=== PATIENT | female | born 1985 | race Two or more races ===

== ENCOUNTER 2022-10-15 08:21 | Inpatient (IN) | payer BC, OTHER ==
[~2022-10-15] VITALS: Ht 160 cm; Wt 62.1 kg
[2022-10-15] MEDS ORDERED: LORAZEPAM INJ 2 MG/ML VIAL ONE (08:28)
[2022-10-15] MEDS ORDERED: LORAZEPAM INJ 2 MG/ML VIAL IV ONE (09:00)
[2022-10-15] MEDS ORDERED: IV NS 0.9% 1,000 ML IV ONE (09:00)
[2022-10-15] MEDS ORDERED: IPRATROPIUM NEB FS 0.5 MG/2.5 ML AMPUL.NEB NEB ONE ×2 (13:00→14:00)
[2022-10-15] MEDS ORDERED: Magnesium 1GM/D5W 100ML PREMIX 200 ML IV ONE (13:00)
[2022-10-15] MEDS ORDERED: methylPREDNISolone SOD SUCC 125 MG/2ML VIAL IV ONE (13:00)
[2022-10-15] MEDS ORDERED: ALBUTEROL FS 2.5 MG/3 ML VIAL.NEB NEB ONE ×2 (13:00→14:00)
[2022-10-15] MEDS ORDERED: IV NS 0.9% 1,000 ML BAG IV ONE (13:00)
[2022-10-15] MEDS ORDERED: methylPREDNISolone SOD SUCC 125 MG/2ML VIAL ONE (13:04)
[2022-10-15] MEDS ORDERED: Magnesium 1GM/D5W 100ML PREMIX 100 ML IV ONE ×2 (13:06→14:31)
[2022-10-15] MEDS ORDERED: ALBUTEROL FS 2.5 MG/3 ML VIAL.NEB ONE ×2 (13:08→13:43)
[2022-10-15] MEDS ORDERED: IPRATROPIUM NEB FS 0.5 MG/2.5 ML AMPUL.NEB ONE ×2 (13:08→13:43)
[2022-10-15] MEDS ORDERED: FLUT1DIS3 INH (13:29)
[2022-10-15] MEDS ORDERED: ALBU8.5H8 INH (13:29)
[2022-10-15] MEDS ORDERED: HYDR-4076 PO (13:29)
[2022-10-15 13:33] LABS: ABG BASE EXCESS -5.9 mmol/L; ABG PCO2 32.6 mmHg (35.0-45.0); ABG PO2 87.2 mmHg (75.0-100.0); COHb 0.3 % (0.5-1.5); MetHb 0.3 % (0.0-1.5); O2Hb 95.3 % (94.0-97.0); SITE, ABG Right Radial; VENT MODE, BG RA
[2022-10-15] MEDS ORDERED: KETOROLAC TROMETHAMINE 15 MG/ML VIAL ONE (13:49)
[2022-10-15 13:58] LABS: CALCIUM, SERUM 8.3 mg/dL (8.5-10.1); CARBON DIOXIDE 16 mmol/L (21-32); CHLORIDE 101 mmol/L (98-107); CREATININE 0.9 mg/dL (0.6-1.3); GLUCOSE 222 mg/dL (74-106); SODIUM SERUM 137 mmol/L (136-145); UREA NITROGEN, BLOOD 15 mg/dL (7-18)
[2022-10-15] MEDS ORDERED: KETOROLAC TROMETHAMINE INJ 30 MG/ML VIAL IV ONE (14:00)
[2022-10-15 14:16] LABS: POTASSIUM 2.1 mmol/L (3.5-5.1)
[2022-10-15 14:17] LABS: BASOPHILS % (AUTO) 0.4 % (0.0-2.0); EOSINOPHILS % (AUTO) 4.7 % (0.0-6.0); HEMATOCRIT 39 % (33-45); HEMOGLOBIN 12.7 g/dL (11.5-14.8); LYMPHOCYTES # (AUTO) 4.2 K/uL (0.8-4.8); MEAN CORPUSCULAR HGB CONC 32 g/dl (31.0-36.0); MEAN CORPUSCULAR VOLUME 89 fL (82-100); MONOCYTES # (AUTO) 0.5 K/uL (0.1-1.30); MONOCYTES % (AUTO) 5.2 % (2.0-12.0); NEUTROPHILS # (AUTO) 4.2 K/uL (1.8-8.9); NEUTROPHILS % (AUTO) 44.7 % (43.0-81.0); PLATELET COUNT (AUTO) 285 K/uL (150-450); RED BLOOD CELL COUNT(AUTO) 4.42 MIL/uL (4.0-5.2); WHITE BLOOD COUNT (AUTO) 9.3 K/uL (4.3-11.0)
[2022-10-15] MEDS ORDERED: POTASSIUM CHLORIDE 20 MEQ TAB.PRT.SR PO ONE ×3 (14:30→15:30)
[2022-10-15] MEDS ORDERED: POTASSIUM CL. PREMIX PERIPHER. 200 ML ONE (14:31)
[2022-10-15] MEDS: POTASSIUM CL. PREMIX PERIPHER. 50 ML IV SCH ×4 (14:47→17:54)
[2022-10-15] MEDS ORDERED: NALTREXONE PO (14:58)
[2022-10-15] MEDS ORDERED: INSULIN REGULAR, HUMAN 100 UNIT/ML 3 ML VIAL SQ PRN (16:30)
[2022-10-15] MEDS ORDERED: DEXTROSE 50%-WATER 50 ML DISP.SYRIN IV PRN (16:30)
[2022-10-15] MEDS ORDERED: ALBUTEROL FS 2.5 MG/0.5 ML VIAL.NEB NEB PRN (16:30)
[2022-10-15] MEDS ORDERED: ONDANSETRON HCL/PF 4 MG/2 ML VIAL IVP PRN (16:30)
[2022-10-15] MEDS ORDERED: ACETAMINOPHEN 325 MG TABLET PO PRN (16:30)
[2022-10-15 17:21] LABS: ALBUMIN 3.7 g/dL (3.4-5.0); BILIRUBIN,TOTAL 0.2 mg/dL (0.2-1.0); CALCIUM, SERUM 7.1 mg/dL (8.5-10.1); CREATININE 0.8 mg/dL (0.6-1.3); POTASSIUM 3.7 mmol/L (3.5-5.1)
[2022-10-15] MEDS: BLOOD SUGAR DIAGNOSTIC 1 EACH STRIP IN SCH ×2 (17:30→22:24)
[2022-10-15] MEDS: ENOXAPARIN SODIUM 40 MG/0.4 ML DISP.SYRIN SQ SCH (18:18)
[2022-10-15] MEDS: IV D5/0.45 NACL 1,000 ML IV SCH (19:02)
[2022-10-15] MEDS: AMOX/CLAVULANATE 875 MG TABLET PO SCH (19:03)
[2022-10-15 20:00] VITALS: BP 103/65
[2022-10-15 20:01] LABS: BILIRUBIN,DIRECT 0.1 mg/dL (0.0-0.2)
[2022-10-15] MEDS: IPRATROPIUM NEB FS 0.5 MG/2.5 ML AMPUL.NEB NEB SCH (20:28)
[2022-10-15] MEDS: ALBUTEROL FS 2.5 MG/3 ML VIAL.NEB NEB SCH (20:28)
[2022-10-15] MEDS ORDERED: ALPRAZOLAM 0.25 MG TABLET PO PRN (21:00)
[2022-10-16] VITALS: BP 105/63
[2022-10-16] MEDS: BUTALB/APAP/CAFFEINE 1 EACH TABLET PO PRN ×2 (00:08→11:53)
[2022-10-16] MEDS: ALBUTEROL FS 2.5 MG/3 ML VIAL.NEB NEB SCH ×4 (01:27→20:07)
[2022-10-16] MEDS: IPRATROPIUM NEB FS 0.5 MG/2.5 ML AMPUL.NEB NEB SCH ×2 (01:28→07:24)
[2022-10-16] MEDS: MORPHINE SULFATE INJ 2 MG/ML DISP.SYRIN IV PRN ×2 (02:09→20:41)
[2022-10-16 04:00] VITALS: BP 118/65
[2022-10-16] MEDS: IV D5/0.45 NACL 1,000 ML IV SCH (04:31)
[2022-10-16 06:30] LABS: BASOPHILS % (AUTO) 0.1 % (0.0-2.0); HEMATOCRIT 33 % (33-45); LYMPHOCYTES # (AUTO) 1.6 K/uL (0.8-4.8); LYMPHOCYTES % (AUTO) 12.6 % (20.0-44.0); MEAN CORPUSCULAR HGB CONC 33 g/dl (31.0-36.0); MEAN CORPUSCULAR VOLUME 88 fL (82-100); MONOCYTES # (AUTO) 1.1 K/uL (0.1-1.30); MONOCYTES % (AUTO) 8.7 % (2.0-12.0); NEUTROPHILS # (AUTO) 9.7 K/uL (1.8-8.9); NEUTROPHILS % (AUTO) 78.6 % (43.0-81.0); PLATELET COUNT (AUTO) 209 K/uL (150-450); RED BLOOD CELL COUNT(AUTO) 3.72 MIL/uL (4.0-5.2); WHITE BLOOD COUNT (AUTO) 12.3 K/uL (4.3-11.0)
[2022-10-16] MEDS: BLOOD SUGAR DIAGNOSTIC 1 EACH STRIP IN SCH ×4 (06:54→21:39)
[2022-10-16 07:20] LABS: ALBUMIN 3.3 g/dL (3.4-5.0); BILIRUBIN,TOTAL 0.2 mg/dL (0.2-1.0); CREATININE 0.6 mg/dL (0.6-1.3); MAGNESIUM 2.9 mg/dL (1.8-2.4); PHOSPHORUS 3.5 mg/dL (2.5-4.9); TOTAL PROTEIN, SERUM 6.5 g/dL (6.4-8.2)
[2022-10-16] MEDS: AMOX/CLAVULANATE 875 MG TABLET PO SCH (08:13)
[2022-10-16 08:33] VITALS: BP 115/70
[2022-10-16 11:49] VITALS: BP 112/69
[2022-10-16] MEDS: predniSONE 20 MG TABLET PO SCH (11:49)
[2022-10-16 16:12] VITALS: BP 136/56
[2022-10-16] MEDS: ENOXAPARIN SODIUM 40 MG/0.4 ML DISP.SYRIN SQ SCH (16:54)
[2022-10-16 20:00] VITALS: BP 109/76
[2022-10-17] VITALS: BP 102/53
[2022-10-17] MEDS: ALBUTEROL FS 2.5 MG/3 ML VIAL.NEB NEB SCH ×2 (02:03→07:56)
[2022-10-17 04:00] VITALS: BP 99/55
[2022-10-17 04:44] VITALS: BP 99/55
[2022-10-17] MEDS: BLOOD SUGAR DIAGNOSTIC 1 EACH STRIP IN SCH ×2 (06:48→11:56)
[2022-10-17] MEDS: predniSONE 20 MG TABLET PO SCH (08:23)
[2022-10-17] MEDS: MORPHINE SULFATE INJ 2 MG/ML DISP.SYRIN IV PRN (08:27)
[2022-10-17] MEDS ORDERED: FLUTICASONE/VILANTEROL 1 EACH BLST.W.DEV IH SCH (09:00)
[2022-10-17] MEDS ORDERED: PRED20TA PO (09:01)
[2022-10-17] MEDS ORDERED: ALBU8.5H8 INH (09:01)
[2022-10-17] MEDS ORDERED: FLUT1DIS3 INH (09:01)
== END 2022-10-17 13:00 | disposition home or self-care (01) | DRG 205 ==
LOC: ER 09:06 → TELE 16:40 → MED 10-17 10:34
PROVIDERS: ADMIT Internal Medicine; ATTEND Internal Medicine
DX: J95.4 Chemical pneumonitis due to anesthesia (principal); J96.01 Acute respiratory failure with hypoxia; E87.20 Acidosis, unspecified; Y84.8 Other medical procedures as the cause of abnormal reaction of the patient, or of later complication, without mention of misadventure at the time of the procedure; Y92.531 Health care provider office as the place of occurrence of the external cause; U09.9 Post COVID-19 condition, unspecified; Z20.822 Contact with and (suspected) exposure to COVID-19; Z88.0 Allergy status to penicillin; Z88.1 Allergy status to other antibiotic agents; Z79.51 Long term (current) use of inhaled steroids; Z79.899 Other long term (current) drug therapy; G90.A Postural orthostatic tachycardia syndrome [POTS]; E87.6 Hypokalemia; T41.45XA Adverse effect of unspecified anesthetic, initial encounter; E83.51 Hypocalcemia; R73.9 Hyperglycemia, unspecified
CPT/HCPCS: 36415; 36600; 70450-TC; 71045-TC; 71250-TC; 80048-TC; 80053-TC; 82248-TC; 82803-TC; 82962-TC; 83605-TC; 83735-TC; 83880; 84100-TC; 84484-TC; 85025-TC; 87081-TC; 94799-TC; C9803; G0378; J1650; J1815; J1885; J2060; J2270; J2930; J3475; J3480; J3490; J7030; J7050